=== PATIENT | female | born 1995 | race Caucasian/White ===

== ENCOUNTER → 2019-02-22 | Outpatient (CLI) | payer BC ==
[~2019-02-22] MED LIST: BLISOVI FE 1-21 EACH PO; IBUPROFEN 400400 M2 PO; MACROBID 100 M100 M1 PO; SPIRONOLACTONE25 MG PO
== END ==
LOC: CAT 09:47
DX: R51 Headache (principal); R41.3 Other amnesia

== ENCOUNTER → 2019-03-13 | Outpatient (CLI) | payer BC ==
--- NOTE | 2019-03-16 13:30 | EEG ---
[facility] [place] [address] ELECTROENCEPHALOGRAM Name: KRYS DIAMOND Room #: [facility] M..#: [id number] Admission: 03/13/19 Attend Phys: MARK Hunter Discharge: Date of : 89 Report #: [id number] THIS REPORT FOR: //name// CC: Davey Rodriguez DATE OF SERVICE: 03/13/2019 This patient is being evaluated for an episode of syncope. EEG was done by placing the electrode by standard 10-20 system of electrode placement. Both referential and sequential montages were used for recording. Background activity in this patient's EEG is about 11 Hz and 30 microvolt. It is a symmetrical activity. Photic stimulation was unremarkable. The patient became drowsy and that is associated with bilateral slowing and vertex sharp waves. Throughout the record, no active epileptiform activity was noticed. IMPRESSION: This patient's EEG is within normal limit. <ELECTRONICALLY SIGNED> By: Angel Angulo MD 03/16/19 1330 [id number] Angel Angulo MD /nt
== END ==
LOC: NEURO 08:52
DX: R41.3 Other amnesia (principal)